=== PATIENT | female | born 1990 | race Caucasian/White ===

== ENCOUNTER 2018-04-15 12:47 | Emergency (ER) | payer MEDICAID ==
[2018-04-15 12:56] VITALS: BP 113/97
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
== END 2018-04-15 13:55 | disposition home or self-care (01) ==
DX: S00.03XA Contusion of scalp, initial encounter (principal); F17.200 Nicotine dependence, unspecified, uncomplicated; W18.09XA Striking against other object with subsequent fall, initial encounter
CPT/HCPCS: 80305